=== PATIENT | female | born 1995 | race African-American/Black ===

== ENCOUNTER 2024-03-08 19:46 | Emergency (ER) | payer MEDICAID, OTHER ==
[~2024-03-08] VITALS: Ht 172.7 cm; Wt 61.0 kg
[2024-03-08 19:51] VITALS: BP 142/87; PULSE 84; RESP 18; TEMP 97.9; O2SAT 99
== END 2024-03-08 21:00 | disposition left against medical advice (07) ==
LOC: ER 19:46
DX: J02.9 Acute pharyngitis, unspecified (principal); Z53.21 Procedure and treatment not carried out due to patient leaving prior to being seen by health care provider